=== PATIENT | female | born 1995 | race Caucasian/White ===

== ENCOUNTER 2017-03-23 16:54 | Observation (INO) | payer MEDICAID ==
[2017-03-23] MEDS ORDERED: Sodium Chloride 0.9% 10 ML Syringe FLUSH PRN (17:47)
[2017-03-23] MEDS ORDERED: Lactated Ringers 1,000 ML IV SCH (18:00)
[2017-03-24] MEDS ORDERED: Lactated Ringers 1,000 ML IV SCH (03:45)
[2017-03-24 07:59] VITALS: BP 97/55
--- NOTE | 2017-03-24 09:55 | PCM.LDHP ---
L&D History of Present Illness - General Date of Service: 03/24/17 Admit Problem/Dx: Patient Status Order with Admit Dx/Problem 03/23/17 17:01 Admission Status [Patient Status] [ADT] Routine Admission Diagnosis/Problem Admission Diagnosis/Problem complications Source of Information: Patient History Limitations: Reports: No Limitations - History of Present Illness Introduction:: 21-year-old female admitted last night because of oligohydramnios. She complains of no bleeding or leakage of fluid. She presented the clinic for routine follow-up ultrasound at 24 weeks and found to have an RAMONA of 3.3. This morning she slipped while she drank lots of fluids overnight denies any nausea vomiting fever diarrhea chest pain cough or urinary symptoms. - Related Data Allergies/Adverse Reactions: Allergies Allergy/AdvReac Type Severity Reaction Status Date / Time bee venom protein (honey bee) Allergy Severe Anaphylactic Verified 03/24/17 07: 25 Shock escitalopram oxalate Allergy Cannot Verified 03/24/17 07:25 [From Lexapro] Remember Sulfa (Sulfonamide Allergy Rash Verified 03/24/17 07:25 Antibiotics) Home Medications: Home Meds [id number]/Iron Fumarate/FA/DSS [ 19 Tablet] 1 tab PO DAILY 08/26/15 [ History] Ferrous Sulfate 1 tab PO DAILY 10/30/15 [History] Past Medical History HEENT History: Reports: Cataract, Other (See Below) Other HEENT History: Grandfather 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 Grandfather - cataracts. Social & Family History - Family History Family Medical History: Noncontributory - Tobacco Use Smoking Status *Q: Current Every Day Smoker Years of Tobacco use: 3 Packs/Tins Daily: 0.2 Used Tobacco, but Quit: No Second Hand Smoke Exposure: No - Caffeine Use Caffeine Use: Reports: Soda - Alcohol Use Days Per Week of Alcohol Use: 0 - Recreational Drug Use Recreational Drug Use: No H&P Review of Systems - Review of Systems: Review Of Systems: ROS reveals no pertinent complaints other than HPI. L&D Exam - Exam Exam: See Below - Vital Signs Vital Signs: Last Vital Signs Temp 98.4 F 03/24/17 07:52 Pulse 73 03/24/17 07:52 Resp 20 03/24/17 07:52 BP 97/55 L 03/24/17 07:52 Pulse Ox 99 03/24/17 07:52 Weight: 56.699 kg - OB Specific Contraction Duration (sec): 0 Contraction Frequency (min): 0 - Exam General: Alert, Oriented HEENT: PERRLA, Conjunctiva Clear, EACs Clear, EOMI, Hearing Intact, Mucosa Moist & Luther, Nares Patent, Normal Nasal Septum, Posterior Pharynx Clear, TMs Clear Neck: Supple, Trachea Midline Lungs: Clear to Auscultation, Normal Respiratory Effort Cardiovascular: Regular Rate, Regular Rhythm GI/Abdominal Exam: Normal Bowel Sounds, Soft, Non-Tender, No Organomegaly, No Distention, No Abnormal Bruit, No Mass, Pelvis Stable Rectal Exam: Normal Exam, Normal Rectal Tone Genitourinary: Normal external exam, Normal bimanual exam, Normal speculum exam Back Exam: Normal Inspection, Full Range of Motion Extremities: Normal Inspection, Normal Range of Motion, Non-Tender, No Pedal Edema, Normal Capillary Refill Skin: Warm, Dry, Intact Neurological: Cranial Nerves Intact, Reflexes Equal Bilateral Psychiatric: Alert, Normal Affect, Normal Mood - Patient Data Lab Results Last 24 hrs: Laboratory Results - last 24 hr 03/23/17 03/23/17 03/23/17 Range/Units 18:03 18:03 18:20 WBC 11.3 (4.5-12.0) X10-3/uL RBC 3.78 (3.23-5.20) x10(6)uL Hgb 11.5 (11.5-15.5) g/dL Hct 33.9 (30.0-51.3) % MCV 89.6 (80-96) fL MCH 30.6 (27.7-33.6) pg MCHC 34.1 (32.2-35.4) g/dL RDW 12.7 (11.5-15.5) % Plt Count 281 (125-369) X10(3)uL MPV 7.5 (7.4-10.4) fL Add Manual Diff Yes Neutrophils % (Manual) 81 (46-82) % Band Neutrophils % 3 (0-6) % Lymphocytes % (Manual) 13 (13-37) % Monocytes % (Manual) 3 L (4-12) % Sodium 137 (135-145) mmol/L Potassium 3.7 (3.5-5.3) mmol/L Chloride 102 (100-110) mmol/L Carbon Dioxide 26 (21-32) mmol/L BUN 6 L (7-18) mg/dL Creatinine 0.4 L (0.55-1.02) mg/dL Est Cr Clr Drug Dosing TNP Estimated GFR (MDRD) > 60 (>60) BUN/Creatinine Ratio 15.0 (9-20) Glucose 87 (80-116) mg/dL Calcium 8.7 (8.6-10.2) mg/dL Total Bilirubin 0.3 (0.1-1.3) mg/dL AST 15 (5-25) IU/L ALT 15 (12-36) U/L Alkaline Phosphatase 107 (56-112) IU/L Total Protein 6.6 (6.0-8.0) g/dL Albumin 2.4 L (3.5-5.2) g/dL Globulin 4.2 g/dL Albumin/Globulin Ratio 0.6 Urine Color Yellow (YELLOW) Urine Appearance Cloudy (CLEAR) Urine pH 7.0 H (5.0-6.5) Ur Specific [place] 1.010 (1.010-1.025) Urine Protein Negative (NEGATIVE) mg/dL Urine Glucose (UA) Normal (NEGATIVE) mg/dL Urine Ketones Negative (NEGATIVE) mg/dL Urine Occult Blood Negative (NEGATIVE) Urine Nitrite Negative (NEGATIVE) Urine Bilirubin Negative (NEGATIVE) Urine Urobilinogen Normal (NEGATIVE) mg/dL Ur Leukocyte Esterase Large H (NEGATIVE) Urine RBC 0-5 (0) Urine WBC 10-20 H (0) Ur Squamous Epith Cells Moderate H (NS,R,O) Amorphous Sediment Moderate Urine Bacteria Few H (NS) Membrane Rupture (NEGATIVE) 03/23/17 Range/Units 19:50 WBC (4.5-12.0) X10-3/uL RBC (3.23-5.20) x10(6)uL Hgb (11.5-15.5) g/dL Hct (30.0-51.3) % MCV (80-96) fL MCH (27.7-33.6) pg MCHC (32.2-35.4) g/dL RDW (11.5-15.5) % Plt Count (125-369) X10(3)uL MPV (7.4-10.4) fL Add Manual Diff Neutrophils % (Manual) (46-82) % Band Neutrophils % (0-6) % Lymphocytes % (Manual) (13-37) % Monocytes % (Manual) (4-12) % Sodium (135-145) mmol/L Potassium (3.5-5.3) mmol/L Chloride (100-110) mmol/L Carbon Dioxide (21-32) mmol/L BUN (7-18) mg/dL Creatinine (0.55-1.02) mg/dL Est Cr Clr Drug Dosing Estimated GFR (MDRD) (>60) BUN/Creatinine Ratio (9-20) Glucose (80-116) mg/dL Calcium (8.6-10.2) mg/dL Total Bilirubin (0.1-1.3) mg/dL AST (5-25) IU/L ALT (12-36) U/L Alkaline Phosphatase (56-112) IU/L Total Protein (6.0-8.0) g/dL Albumin (3.5-5.2) g/dL Globulin g/dL Albumin/Globulin Ratio Urine Color (YELLOW) Urine Appearance (CLEAR) Urine pH (5.0-6.5) Ur Specific [place] (1.010-1.025) Urine Protein (NEGATIVE) mg/dL Urine Glucose (UA) (NEGATIVE) mg/dL Urine Ketones (NEGATIVE) mg/dL Urine Occult Blood (NEGATIVE) Urine Nitrite (NEGATIVE) Urine Bilirubin (NEGATIVE) Urine Urobilinogen (NEGATIVE) mg/dL Ur Leukocyte Esterase (NEGATIVE) Urine RBC (0) Urine WBC (0) Ur Squamous Epith Cells (NS,R,O) Amorphous Sediment Urine Bacteria (NS) Membrane Rupture Negative (NEGATIVE) Result Diagrams: 03/23/17 18:03 03/23/17 18:03 - Problem List (1) care in second trimester SNOMED Code(s): 458391503, 58105468, 059536881, 546326770 ICD Code: Z34.92 - ENCNTR FOR SUPRVSN OF NORMAL PREG, UNSP, SECOND TRIMESTER Status: Acute Current Visit: Yes (2) Oligohydramnios SNOMED Code(s): 14430587 ICD Code: O41.00X0 - OLIGOHYDRAMNIOS, UNSP TRIMESTER, NOT APPLICABLE OR UNSP Status: Acute Current Visit: Yes Qualifiers: Fetus number: single or unspecified fetus Trimester: second trimester Qualified Code(s): O41.02X0 - Oligohydramnios, second trimester, not applicable or unspecified Problem List Initiated/Reviewed/Updated: Yes Orders Last 24hrs: Active Orders 24 hr Category Date Time Status Admission Status [Patient Status] [ADT] Routine ADT 03/23/17 17:01 Active Peripheral IV Care [RC] 00,08,16 Care 03/23/17 17:47 Active Adult Diet [DIET] Diet 03/23/17 Dinner Active OB 2 Or 3 Tri Sgl 1st Gest [US] Routine Exams 03/24/17 07:32 Taken Lactated Ringers [Ringers, Lactated] 1,000 ml Med 03/24/17 03:45 Active IV ASDIRECTED Sodium Chloride 0.9% [Saline Flush] Med 03/23/17 17:47 Active 10 ml FLUSH ASDIRECTED PRN Peripheral IV Insertion Adult [OM.PC] Routine Oth 03/23/17 17:47 Ordered Medication Orders Lactated Ringer's (Ringers, Lactated) 1,000 mls @ 125 mls/hr IV ASDIRECTED LESTER Last Admin: 03/23/17 19:00 Dose: 125 mls/hr Sodium Chloride (Saline Flush) 10 ml FLUSH ASDIRECTED PRN PRN Reason: Keep Vein Open Last Admin: 03/24/17 03:00 Dose: 10 ml Assessment/Plan Comment:: This morning patient had a repeat ultrasound, that showed that there RAMONA was up to 4.9. CBC CMP were all within reference range. Amniosure is negative. This is still considered low and as such I called [facility] and spoke to Dr. Vera business line controller. Patient will be sent there for further treatment and investigations, possibly conuslt with M.
--- NOTE | 2017-03-26 09:05 | DISCH ---
DISCHARGE DATE: 03/24/2017 ADMISSION REASON: Oligohydramnios. DISCHARGE REASON: Oligohydramnios. PROCEDURES: None. CONSULTATIONS: Obstetrics by phone. BRIEF HISTORY AND HOSPITAL COURSE: A 21-year-old, G2, P1, at 24 weeks admitted because of a low RAMONA. She was rehydrated both intravenously and orally and this morning a repeat ultrasound showed an RAMONA of 4.9 up from 3.3. She is asymptomatic. AmniSure, CBC, and CMP were all negative. A decision was made to send her to OB at [facility] for further testing. Consideration for MFM consultation or amnioinfusion. Please note that I spent more than 35 minutes in the discharge of this patient. /[id number] RUTHY/ARIEL
--- NOTE | 2017-03-26 10:23 | US ---
INDICATION: Oligohydramnios. OB ULTRASOUND SECOND OR THIRD TRIMESTER: Multiple ultrasonic images were obtained 03/24/2017. No comparison study was available. Placenta is anterior fundal, grade 2, without evidence of previa. A relatively small amount of amniotic fluid is noted with an RAMONA of 4.79. movement appears to be normal. Fetus lies longitudinally with cephalic presentation. No adnexal mass lesions or free fluid collections were identified. Maternal ovaries were not demonstrated. A regular heart rate of 136 BPM was noted. urinary bladder was demonstrated. Cervix was measured at approximately 3.1 cm and was unremarkable. Gestational age measurements were fairly closely grouped: BPD 23 weeks 6 days. HC 23 weeks 5 days. AC 23 weeks 2 days. FL 22 weeks 5 days, and averaged 23 weeks 3 days, which is only 3 days behind the LMP GA of 23 weeks 6 days. IVETTE by ultrasound is 07/18/2017, compared with the LMP IVETTE of 07/15/2017. Estimated weight was 560 grams (1 pound 4 ounces), 13th percentile. Gestational age measurement ratios provided were within normal range, except for the femur length/biparietal diameter which was slightly low at 68% (normal range 71-87%). IMPRESSION: 1. Oligohydramnios. 2. Femur length/biparietal diameter ratio 68 - slightly low. 3. parameters were not fully evaluated. 4. Otherwise unremarkable 23-week 3-day intrauterine gestation, only 3 days behind the LMP GA. MTDD
== END 2017-03-24 11:25 ==
LOC: FB.OB 16:54
PROVIDERS: ADMIT Family Medicine; ATTEND Family Medicine
DX: O41.02X0 Oligohydramnios, second trimester, not applicable or unspecified (principal); F17.210 Nicotine dependence, cigarettes, uncomplicated; O99.332 Smoking (tobacco) complicating pregnancy, second trimester; Z3A.24 24 weeks gestation of pregnancy; Z91.030 Bee allergy status; Z88.8 Allergy status to other drugs, medicaments and biological substances; Z88.2 Allergy status to sulfonamides; Z79.899 Other long term (current) drug therapy
CPT/HCPCS: 36415; 76805; 80053; 81001; 84112; 85025; 96360; 96361; J7050; J7120; G0378